=== PATIENT | female | born 1955 | race Caucasian/White ===

== ENCOUNTER → 2018-08-28 | Outpatient (CLI) | payer OTHER, MEDICARE ==
[2016-11-24 15:32] VITALS: BP 148/90
[~2018-08-28] MED LIST: FERR325T14 PO; OMEP20CA9 PO; SUCR1TAB35 PO; VENTOLIN HFA18 GM INH
--- NOTE | 2018-08-28 15:46 | KCIC ---
EXAM: Left knee, 3 views. HISTORY: Pain. COMPARISON: None. FINDINGS: 3 views of the left knee are obtained. There is lateral compartment joint space narrowing. There is severe lateral and moderate medial and patellofemoral compartment spurring. There is genu valgus. There is a small joint effusion. There is no fracture, dislocation or subluxation. IMPRESSION: 1. Severe lateral and moderate medial and patellofemoral compartment osteoarthritis. 2. Small left knee effusion. 3. Left genu valgus. Electronically signed by: Maty Armstrong MD (08/28/2018 3:42 PM) [facility]
== END | disposition home or self-care (01) ==
LOC: KCIC 15:04
PROVIDERS: ATTEND Family Medicine
DX: M17.12 Unilateral primary osteoarthritis, left knee (principal); M25.462 Effusion, left knee; M21.062 Valgus deformity, not elsewhere classified, left knee; G89.29 Other chronic pain; Z86.2 Personal history of diseases of the blood and blood-forming organs and certain disorders involving the immune mechanism
CPT/HCPCS: 73564

== ENCOUNTER → 2018-08-31 | Outpatient (CLI) | payer OTHER, MEDICARE ==
[2016-11-24 15:32] VITALS: BP 148/90
[~2018-08-31] MED LIST changes: +IOHEXOL 240 MG/ML 50ML VIAL. PO ONE; +IOHEXOL 300 MG/ML 100ML VIAL. IV ONE
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
== END | disposition home or self-care (01) ==
LOC: KCIC CT 10:41
PROVIDERS: ATTEND Family Medicine
DX: K44.9 Diaphragmatic hernia without obstruction or gangrene (principal); M47.895 Other spondylosis, thoracolumbar region; K76.89 Other specified diseases of liver; J45.909 Unspecified asthma, uncomplicated; Z85.3 Personal history of malignant neoplasm of breast
CPT/HCPCS: 74160; Q9966; Q9967

== ENCOUNTER → 2020-05-21 | Outpatient (CLI) | payer OTHER ==
[2016-11-24 15:32] VITALS: BP 148/90
[~2020-05-21] MED LIST changes: -IOHEXOL 240 MG/ML 50ML VIAL. PO ONE; -IOHEXOL 300 MG/ML 100ML VIAL. IV ONE; +OMEP20CA16 PO; -OMEP20CA9 PO
--- NOTE | 2020-05-21 14:16 | KCIC ---
2 view study of the left thumb Clinical indications: Left thumb pain. Subcutaneous nodule blue in color involving the volar aspect of the DIP joint. FINDINGS: No acute fracture or dislocation or lytic process is seen. There is mild degenerative spurring of first interphalangeal joint and the first metacarpal phalangeal joint. No erosive arthropathy is evident. No obvious soft tissue mass is seen. No soft tissue calcification is evident. IMPRESSION: No acute osseous abnormality. Mild primary degenerative osteoarthritis. Electronically signed by: Darrius Mukherjee MD (05/21/2020 2:13 PM) [id number]
== END | disposition home or self-care (01) ==
LOC: KCIC 10:44
PROVIDERS: ATTEND Family Medicine
DX: M19.042 Primary osteoarthritis, left hand (principal); M77.9 Enthesopathy, unspecified
CPT/HCPCS: 73140

== ENCOUNTER → 2020-12-19 | Outpatient (CLI) | payer MEDICARE ==
[2016-11-24 15:32] VITALS: BP 148/90
--- NOTE | 2020-12-19 17:08 | KCIC ---
Chest, PA and Lateral: Technique: PA and lateral views of the chest were obtained. History: Fatigue. Comparison: 07/16/2011. Findings: The heart and pulmonary vasculature appear within normal limits. Mild bibasilar lung airspace opacit ies likely atelectasis or infiltrates.. The pleural margins are clear. Impression: Mild bibasilar lung airspace opacities likely atelectasis or infiltrates.. Electronically signed by: Ulysses Cordova MD (12/19/2020 5:05 PM) [id number]
== END ==
LOC: KCIC 14:43
PROVIDERS: ATTEND Nurse Practitioner Gerontology
DX: R53.83 Other fatigue (principal)
CPT/HCPCS: 71046

== ENCOUNTER → 2021-01-16 | Outpatient (CLI) | payer MEDICARE ==
[2016-11-24 15:32] VITALS: BP 148/90
--- NOTE | 2021-01-16 17:01 | KCIC ---
EXAM: Chest, 2 views. HISTORY: Left intercostal pain. COMPARISON: 12/19/2020. FINDINGS: 2 views of the chest are obtained. There is stable lingular opacity likely due to atelectas is. There is new linear left basilar opacity likely due to atelectasis. There is no consolidation, pl eural effusion or pneumothorax. The heart is normal in size. There is slight hyperinflation. There ar e cholecystectomy clips. There is a compression fracture with vertebroplasty changes at the thoracolu mbar junction. IMPRESSION: Suspected lingular and left basilar atelectasis. Electronically signed by: Maty Armstrong MD (01/16/2021 4:58 PM) [id number]
== END ==
LOC: KCIC 14:19
PROVIDERS: ATTEND Nurse Practitioner Gerontology
DX: R07.82 Intercostal pain (principal); M48.55XA Collapsed vertebra, not elsewhere classified, thoracolumbar region, initial encounter for fracture
CPT/HCPCS: 71046

== ENCOUNTER → 2021-02-06 | Outpatient (CLI) | payer MEDICARE ==
[2016-11-24 15:32] VITALS: BP 148/90
[~2021-02-06] MED LIST changes: +CONTRAST GIVEN. MC PRN
[2021-02-06] MEDS: IOHEXOL 300 MG/ML 100ML VIAL. IV ONE (10:32)
--- NOTE | 2021-02-06 10:39 | KCIC ---
EXAM: CT angiography of the chest with intravenous contrast. HISTORY: Chest pain. TECHNIQUE: Computed tomographic images of the chest were obtained following the administration of int ravenous contrast according to angiography protocol. Multiplanar reformatting was performed and three dimensional maximum intensity projection images were obtained. *One or more of the following individualized dose reduction techniques were utilized for this examina tion: 1. Automated exposure control. 2. Adjustment of the mA and/or kV according to patient size. 3. Use of iterative reconstruction technique. COMPARISON: Abdomen and pelvis CT dated 08/31/2018. FINDINGS: There is no pulmonary embolism. The heart is normal in size. There is trace pericardial flu id. The thoracic aorta is normal in caliber. There is a standard aortic arch branching pattern. There is a heterogeneous enlarged thyroid. No discrete nodule is seen. There is no mediastinal or hilar ly mphadenopathy. There is no pneumothorax or pleural effusion. There is linear opacity within the anterior medial right middle lobe, lingular and left lower lobe, t he appearance of which favors atelectasis or scarring. There is no suspicious pulmonary nodule. There is a moderate hiatal hernia and postoperative change involving the gastroesophageal junction. T here is adrenal gland thickening without a discrete nodule. There is a simple appearing cyst within t he upper pole the right kidney, partially included on the [id number] and measuring at least 2.6 cm . The gallbladder is absent. There are degenerative changes throughout the spine. There is a severe c ompression fracture with vertebroplasty changes at T12. IMPRESSION: 1. No evidence of pulmonary embolism. 2. Linear opacities within the anterior medial right upper lobe, lingular and left lower lobe, and la teral which has slightly progressed compared to a CT performed 08/31/2018. This favors atelectasis and /or scarring. The possibility of superimposed left basilar interstitial infiltrate is not excluded. 3. Moderate hiatal hernia. 4. Chronic severe T12 compression fracture with vertebroplasty changes. 5. Heterogeneous enlarged thyroid. No convincing nodule is seen on this exam. Sonographic imaging can be performed if there is clinical concern. Electronically signed by: Maty Armstrong MD (02/06/2021 10:37 AM) [id number]
== END ==
LOC: KCIC CT 09:38
PROVIDERS: ATTEND Nurse Practitioner Gerontology
DX: S22.080A Wedge compression fracture of T11-T12 vertebra, initial encounter for closed fracture (principal); K44.9 Diaphragmatic hernia without obstruction or gangrene; X58.XXXA Exposure to other specified factors, initial encounter; Y93.89 Activity, other specified; Y92.89 Other specified places as the place of occurrence of the external cause; Y99.8 Other external cause status
CPT/HCPCS: 71275; 82565; Q9967

== ENCOUNTER → 2021-02-19 | Outpatient (CLI) | payer MEDICARE ==
[2016-11-24 15:32] VITALS: BP 148/90
[~2021-02-19] MED LIST changes: -CONTRAST GIVEN. MC PRN
--- NOTE | 2021-02-19 16:03 | KCIC ---
MRI THORACIC SPINE WO History:Reason: COMPRESSION FX OF T12 VERTEBRA / Spl. Instructions: / History: Follow up for t12 com pession fx after vertebroplasty procedure. Pain. Technique: Multiplanar, multi sequential noncontrast MR imaging was performed of the thoracic spine. Comparison: CT February 06, 2021 Findings: Chronic T12 compression fractures status post kyphoplasty. Mild retropulsion, unchanged. No acute fra cture. Normal vertebral body height. Degenerative endplate edema at T4-T5. Multilevel vertebral body hemangiomas. T10 vertebral body atypical hemangioma. No pathologic signal abnormality within the thoracic spinal cord. Right renal cyst. Mild multilevel degenerative disc changes. Small disc protrusion most prominent T6-T7, T9-T10 and T11 -T12. Multilevel facet arthropathy most prominent T1-T2. Mild T1-T2 neuroforaminal narrowing. No high -grade neuroforaminal narrowing. Slight cord flattening T9-T10. No significant canal narrowing. Parti ally imaged cervical and lumbar spondylosis.. Impression: 1. Chronic T12 compression fractures status post kyphoplasty. 2. Mild multilevel thoracic spondylosis. Electronically signed by: Jim Sweet DO (02/19/2021 4:01 PM) [id number]
--- NOTE | 2021-02-19 16:56 | KCIC ---
US THYROID History: Reason: Enlarged Thyroid seen on CT 02-06-21 / Spl. Instructions: / History: Comparison: None. Technique: Multiple grayscale and color Doppler images of the thyroid gland were obtained. Findings: Right thyroid lobe: 4.9 x 2.1 x 2.4 cm. Heterogeneous echotexture. Increased vascularity. Left thyroid lobe: 5.7 x 2.2 x 3.1 cm. Heterogeneous echotexture. Increased vascularity. Isthmus: 0.4 cm. -Solid hypoechoic right mid thyroid nodule measures 0.8 x 0.6 x 0.5 cm. TI-RADS 4. -Solid hypoechoic left superior thyroid nodule measures 0.9 x 0.8 x 0.7 cm. TI-RADS 4. -Solid isoechoic left inferior thyroid nodule measures 0.9 x 1.2 x 0.8 cm. TI-RADS 3. ACR Thyroid Imaging, Reporting And Data System (TI-RADS): White Paper Of The ACR TI-RADS Committee. J ournal of the [employer], volume 14, issue 5, pages 587-595 (March 2017). IMPRESSION: 1. Enlarged heterogeneous thyroid with increased vascularity, may represent nonspecific thyroiditis. Recommend correlation with thyroid lab values. 2. TI-RADS 3 and TI-RADS 4 bilateral thyroid nodules. Recommend ultrasound follow-up. Electronically signed by: Jim Sweet DO (02/19/2021 4:54 PM) [id number]
== END ==
LOC: KCIC US 12:58
PROVIDERS: ATTEND Family Medicine
DX: S22.080A Wedge compression fracture of T11-T12 vertebra, initial encounter for closed fracture (principal); E04.2 Nontoxic multinodular goiter; X58.XXXA Exposure to other specified factors, initial encounter; Y93.89 Activity, other specified; Y92.89 Other specified places as the place of occurrence of the external cause; Y99.8 Other external cause status
CPT/HCPCS: 72146; 76536

== ENCOUNTER → 2021-02-19 | Outpatient (CLI) | payer MEDICARE ==
[2016-11-24 15:32] VITALS: BP 148/90
--- NOTE | 2021-02-19 17:47 | KCIC ---
INDICATION: Reason: RIGHT KNEE PAIN XS 2 MONTHS, GIVES OUT PAST 2 WEEKS / Spl. Instructions: / Histo ry: COMPARISON: None. IMPRESSION: Right knee: 2 views obtained. Knee arthroplasty without periprosthetic fracture or dislocation. Electronically signed by: Og Mazariegos MD (02/19/2021 5:45 PM) [id number]
== END ==
LOC: KCIC 13:04
PROVIDERS: ATTEND Nurse Practitioner Gerontology
DX: M25.561 Pain in right knee (principal); Z96.651 Presence of right artificial knee joint
CPT/HCPCS: 73560